=== PATIENT | female | born 1935 | race Caucasian/White ===

== ENCOUNTER 2019-09-30 10:40 | Emergency (ER) | payer MEDICARE ==
--- OUTSIDE RECORDS SUMMARY | 2019-09-30 10:46 | XMS REPORT | Continuity of Care Document ---
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 Vahid Sampson Onset: 12/18 heart failure Senile osteoporosis Vahid Sampson Onset: 12/18/2010 Congenital insufficiency of mitral valve Vahid Sampson Onset: 12/18/2010 Palpitations Vahid Sampson Onset: 12/18/2010 Peripheral vascular disease Vahid Sampson Onset: 12/18/2010 Anxiety state Vahid Sampson Onset: 12/18/2010 Neuralgia Vahid Sampson Onset: 08/29/2015 Social History Type Date Description Comments Sex Unknown Tobacco Use Start: Unknown Denies Smoking ETOH Use Currently consumes alcohol Tobacco Use Start: Unknown Patient has never smoked Recreational Drug Use Never Used Drugs Smoking Status Reviewed: 09/02/17 Patient has never smoked Allergies, Adverse Reactions, Alerts Active Allergies Reaction Severity Comments Date Macrobid 08/14/2005 Bactrim 08/14/2005 Tetanus 08/29/2015 Medications Active Medications SIG Qnty Indications Ordering Date Provider Topicort Apply bid 60gm L40.8 Vahid Sampson 09/03/2016 0.25% Cream Klor-Con 10 1 by mouth 90tabs E87.6 Vahid Sampson 08/29/2015 10Meq Tablets ER once a day Vitamin D 1 po q day 100caps E55.9 Vahid Sampson 08/17/2013 5000Units Capsules Fosamax 1 every week 12tabs M81.0 Ion Sampsonl 05/30/2009 70mg Tablets Prozac 1 by mouth 90caps F41.9 Vahid Sampson 05/19/2007 20mg Capsules every day Lipitor 1/2 by mouth 90tabs Vahid Sampson 12/23/2006 40mg Tablets every other day Hydrochlorothiazide 1 by mouth 90tabs GaussIonl 08/14/2005 25mg Tablets every day Immunizations CPT Code Status Date Vaccine Lot # [id number] Given 08/10/2019 Influenza Virus (Quadrivalent)Splitvirus 3 [id number] Years Of Age And Older Q2035 Given 09/22/2018 Influenza Virus (Quadrivalent)Splitvirus 3 [id number] Years Of Age And Older 69024 Given 09/22/2018 Influenza Virus Vaccine, Quadrivalent, Split, Preservative Free Q2035 Given 09/02/2017 Influenza Virus (Quadrivalent)Splitvirus 3 Years Of Age And Older Q2037 Given 09/03/2016 Influenza Vaccine (Fluvirin) 3 Years Of Age Or [id number] Older Q2037 Given 08/29/2015 Influenza Vaccine (Fluvirin) 3 Years Of Age Or [id number] Older 64029 Given 05/23/2015 Tetanus,Diphtheria,Adut/Adol Pertussis [id number] 06627 Given 05/23/2015 Tetanus,Diphtheria,Adut/Adol Pertussis [id number] Q2037 Given 08/16/2014 Influenza Vaccine (Fluvirin) 3 Years Of Age Or [id number] Older Q2037 Given 08/17/2013 Influenza Vaccine (Fluvirin) 3 Years Of Age Or Older Q2037 Given 08/25/2012 Influenza Vaccine (Fluvirin) 3 Years Of Age Or [id number] Older Q2036 Given 08/27/2011 Flulaval [id number] 16831 Given 08/21/2010 [place]ovax [place]valent Inj Im [id number] 90856 Given 08/21/2010 Influenza Vaccine [id number] 04668 Given 05/30/2009 Influenza Vaccine [id number] 10793 Given 08/03/2008 Influenza Vaccine [id number] 41718 Given 08/16/2005 Influenza Vaccine [id number] 78006 Given 05/08/2004 Tetanus And Diptheria Toxiods Vital Signs Date Vital Result Comment 08/10/2019 10:55am BP Systolic 162 mmHg BP Diastolic 80 mmHg Heart Rate 76 /min Respiratory Rate 20 /min Weight 121.00 lb 04/07/2019 10:47am BP Systolic 130 mmHg BP Diastolic 82 mmHg Heart Rate 86 /min Height 61 inches 5'1" Weight 122.00 lb BMI (Body Mass Index) 23.0 kg/m2 O2 % BldC Oximetry 98 % Results Test Acquired Date Facility Test Result H/L Range Note General Health 08/03/2019 [facility] TSH 1.44 mIU/L Normal 0.40- 4.50 [address] [facility] [address] [place] [address] [phone] T4, Free 1.3 ng/dL Normal 0.8-1.8 CBC W/ 08/03/2019 [facility] White Blood 5.2 Thousand/uL Normal 3.8 -10.8 Diff & PLT [address] [place] [address] [phone] Red Blood Cell Count 4.70 Million/uL Normal 3.80-5.10 Hemoglobin 13.9 g/dL Normal 11.7-15.5 Hematocrit 41.3 % Normal 35.0-45.0 MCV 87.9 fL Normal 80.0-100.0 MCH 29.6 pg Normal 27.0-33.0 MCHC 33.7 g/dL Normal 32.0-36.0 RDW 12.1 % Normal 11.0-15.0 Platelet Count 204 Thousand/uL Normal 140-400 MPV 12.3 fL Normal 7.5-12.5 Absolute Neutrophils 3843 cells/uL Normal 3061-8424 Absolute Lymphocytes 811 cells/uL Low 850-3900 Absolute Monocytes 354 cells/uL Normal 200-950 Absolute Eosinophils 172 cells/uL Normal 15-500 Absolute Basophils 21 cells/uL Normal 0-200 Neutrophils 73.9 % Normal 38-80 Lymphocytes 15.6 % Normal 15-49 Monocytes 6.8 % Normal 0-13 Eosinophils 3.3 % Normal 0-8 Basophils 0.4 % Normal 0-2 CMP W/GFR 08/03/2019 [facility] Glucose 104 mg/dL High 65-[address] [place] [address] [phone] Urea Nitrogen (BUN) 17 mg/dL Normal 7-25 Creatinine 0.51 mg/dL Low 0.60-0.88 3 eGFR Non-Afr. Ukrainian 88 mL/min/1.73m2 Normal > Or = 60 eGFR 102 mL/min/1.73m2 Normal > Or = 60 BUN/Creatinine Ratio 33 (calc) High 6-22 Sodium 139 mmol/L Normal 135-146 Potassium 4.1 mmol/L Normal 3.5-5.3 Chloride 101 mmol/L Normal 98-110 Carbon Dioxide 30 mmol/L Normal 20-32 Calcium 10.1 mg/dL Normal 8.6-10.4 Protein, Total 7.2 g/dL Normal 6.1-8.1 Albumin 4.4 g/dL Normal 3.6-5.1 Globulin 2.8 g/dL(calc) Normal 1.9-3.7 Albumin/Globulin Ratio 1.6 (calc) Normal 1.0-2.5 Bilirubin, Total 0.6 mg/dL Normal 0.2-1.2 Alkaline Phosphatase 65 U/L Normal 33-130 Ast 21 U/L Normal 10-35 Alt 24 U/L Normal 6-29 Lipid Panel 08/03/2019 [facility] Cholesterol, Total 200 mg/dL High <[address] [place] [address] [phone] HDL Cholesterol 73 mg/dL Normal >50 Triglycerides 76 mg/dL Normal <150 LDL-Cholesterol 110 mg/dL(calc) High 4 Chol/HDLC Ratio 2.7 (calc) Normal <5.0 Non HDL Cholesterol 127 mg/dL(calc) Normal <130 5 Laboratory test 08/03/2019 [facility] Enhanced PDF Report SEE IMAGE finding [address] [id number] [place] [address] [phone] 1 FASTING FASTING:YES FASTING: YES 2 Fasting reference interval For someone without known diabetes, a glucose value between 100 and 125 mg/dL is consistent with prediabetes and should be confirmed with a follow-up test. 3 For patients >49 years of age, the reference limit for Creatinine is approximately 13% higher for people identified as -Ukrainian. 4 Reference range: <100 Desirable range <100 mg/dL for primary prevention; <70 mg/dL for patients with CHD or diabetic patients with > or = 2 CHD risk factors. LDL-C is now calculated using the Melyssa calculation, which is a validated novel method providing better accuracy than the Friedewald equation in the estimation of LDL-C. Vin MOISE et al. JONATHAN. 2013;310(19): 5428-0849 (http://Segway.viavoo/faq/ZJC483) 5 For patients with diabetes plus 1 major ASCVD risk factor, treating to a non-HDL-C goal of <100 mg/dL (LDL-C of <70 mg/dL) is considered a therapeutic option. Procedures Date Code Description Status 01/03/2017 373422739 Bone Mineral Density Test Completed 09/27/2011 [id number] Colonoscopy Completed 09/06/2003 [id number] Mammogram Completed Medical Devices Description No Information Available Encounters Type Date Location Provider Dx Diagnosis Office Visit 04/07/2019 10:45a Main Office Vahid Sampson I65.23 Occlusion and stenosis of bilateral carotid arteries M79.2 Neuralgia and neuritis, unspecified E78.5 Hyperlipidemia, unspecified E55.9 Vitamin D deficiency, unspecified R73.01 Impaired fasting glucose M85.80 Oth disrd of bone density and structure, unspecified site I11.9 Hypertensive heart disease without heart failure I34.0 Nonrheumatic mitral (valve) insufficiency Office Visit 02/09/2019 11:00a Main Office Vahid Sampson I65.23 Occlusion and stenosis of bilateral carotid arteries M79.2 Neuralgia and neuritis, unspecified E78.5 Hyperlipidemia, unspecified E55.9 Vitamin D deficiency, unspecified R73.01 Impaired fasting glucose M85.80 Oth disrd of bone density and structure, unspecified site I11.9 Hypertensive heart disease without heart failure Assessments Date Code Description Provider 04/07/2019 I65.23 Occlusion and stenosis of bilateral carotid arteries Vahid Sampson 04/07/2019 M79.2 Neuralgia and neuritis, unspecified Vahid Sampson 04/07/2019 E78.5 Hyperlipidemia, unspecified Vahid Sampson 04/07/2019 E55.9 Vitamin D deficiency, unspecified Vahid Sampson 04/07/2019 R73.01 Impaired fasting glucose Vahid Sampson 04/07/2019 M85.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 and Vahid Sampson structure, [facility] 04/07/2019 I11.9 Hypertensive heart disease without heart failure Vahid Sampson 04/07/2019 I34.0 Nonrheumatic mitral (valve) insufficiency Vahid Sampson 02/09/2019 I65.23 Occlusion and stenosis of bilateral carotid arteries Vahid Sampson 02/09/2019 M79.2 Neuralgia and neuritis, unspecified Ion Sampsonl 02/09/2019 E78.5 Hyperlipidemia, unspecified Ion Sampsonl 02/09/2019 E55.9 Vitamin D deficiency, unspecified Ion Sampsonl 02/09/2019 R73.01 Impaired fasting glucose Ion Sampsonl 02/09/2019 M85.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 and Vahid Sampson, [facility] 02/09/2019 I11.9 Hypertensive heart disease without heart failure Vahid Sampson Plan of Treatment 04/07/2019 - Ion SampsonlI65.23 Occlusion and stenosis of bilateral carotid arteriesComments:Discussed role of life style choices in dietary fats and exercise plays on evolution of [place] disease and importance of controlling cholesterol. Medications role and side effects in disease progression prevention discussed and need for compliance with prescribed treatment. Follow up testing for progression such as ultrasound surveillance mazcctouX12.2 Neuralgia and neuritis, womayhwhvvbP63.5 Hyperlipidemia, unspecifiedComments: Counselled on role of diet and excersize and importance to keep compliance with medication if prescribed and side effects. The importance of routine monitoring of blood lipids and liver tests to managetreatment and avoid side effects were discussed. Usual follow up is 3 months for LFT and Lipid profile. Patient education including dietary guidelines and materials provided.E55.9 Vitamin D deficiency, uuxzczbmwpmX34.01 Impaired fasting glucoseComments:diet and pjadcyuQ45.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 and structure, unsComments:Disscussed recomended goal of 1200-1500MG Calcium and 400 IU Vit D with supplemental MG intake and dietary and supplemental ways to achieve goals. Fall prevention and impact lowering discussed and gaitstability issues addressed. Regular excersize as tolerated with weight bearing role discussed. Necessity of compliance with medications/side effects and importance of monitering for further treatment with DXA addressed. Vertebral Fracture Assesment reviewedDisscussed recomended goal of 1200-1500MG Calcium and 400 IU Vit D with supplemental MG intake and dietary and supplemental ways to achieve goals.Fall prevention and impact lowering discussed and gait stability issues addressed. Regular excersizeas tolerated with weight bearing role discussed. Necessity of compliance with medications/side effects and importance of monitering for further treatment with DXA addressed. Vertebral Fracture Assesment fowdhewyP28.9 Hypertensive heart disease without heart failureComments :CONT. TO MONITOR BP, CONT. LOW SALT DIET Discussed lifestyle factors and role of diet and excerns incontrol of disease and treatment goals and targets. Medication side effects and compliance issues addressed as indicated. The importance of ongoing self monitoring of BP and the symptoms of complications such as TIA, CVA and AMI reviewed. The importance of reporting changes in between visits and side effects stressed. monitoring of patient provided BP checks and laboratory tests related to medicationreviewed. Discussed lifestyle factors and role of diet and excerns in control of disease and treatment goals and targets. Medication side effects and compliance issues addressed as indicated. The importance of ongoing self monitoring of BP and the symptoms of complications such as TIA, CVA and AMI reviewed. The importance of reporting changes in between visits and side effects stressed. monitoring of patient provided BP checks and laboratory tests related to medication reviewed.I34.0 Nonrheumatic mitral (valve) insufficiencyComments:Issues of symptoms and aggravating lifestyle factors such as sleep, stress and dietary choices discussed. Symptoms and medication treatment and compliance and side effects discussed as needed. Need forSBE prophalaxis with antibiotics addressed and discussed where indicated. Follow up Echocardiogram as required.Discussed valvular pathology and need if indicated for antibiotic prophylaxis to prevent S.B.E. Medication compliance and side effects issues addressed. Follow up echocardiogram as warranted.Results of 2D echo and other testing reviewed and discussed with patient possible etiologies, progression prognosis and need for prophylactic antibiotics before dental procedures if warranted for S.B.E. prophylaxis. Routine follow up/ surveillance planned. Functional Status Description No Information Available Mental Status Description No Information Available Referrals Description No Information Available
--- OUTSIDE RECORDS SUMMARY | 2019-09-30 10:46 | XMS REPORT | Continuity of Care Document ---
:1935 External Reference #:[id number] Author Name Vahid Sampson (transmitted by agent of provider Alyson Gleason) Address [address] [place] [address] Problems Active Problems Provider Date Obesity Vahid Sampson Onset: 12/18/2010 Neuralgia Neuritis & Radiculitis Unspecified [...] Capsules Fosamax 1 every week 12tabs M81.0 Vahid Sampson 05/30/2009 70mg Tablets Prozac 1 by mouth 90caps F41.9 Vahid Sampson 05/19/2007 20mg Capsules every day Lipitor 1/2 by mouth 90tabs Vahid Sampson 12/23/2006 40mg Tablets every other day Hydrochlorothiazide 1 by mouth 90tabs GaussVahid 08/14/2005 25mg Tablets every day Immunizations CPT Code Status Date Vaccine Lot # [id number] Given 09/22/2018 Influenza Virus (Quadrivalent)Splitvirus 3 [id number] Years Of Age And Older 11653 Given 09/22/2018 Influenza Virus Vaccine, Quadrivalent, Split, Preservative Free Q2035 Given 09/02/2017 Influenza Virus (Quadrivalent)Splitvirus 3 Years Of Age And Older Q2037 Given 09/03/2016 Influenza Vaccine (Fluvirin) 3 Years Of Age Or [id number] Older Q2037 Given 08/29/2015 Influenza Vaccine (Fluvirin) 3 Years Of Age Or [id number] Older 91294 Given 05/23/2015 Tetanus,Diphtheria,Adut/Adol Pertussis [id number] 20596 Given 05/23/2015 Tetanus,Diphtheria,Adut/Adol Pertussis [id number] Q2037 Given 08/16/2014 Influenza Vaccine (Fluvirin) 3 Years Of Age Or [id number] Older Q2037 Given 08/17/2013 Influenza Vaccine (Fluvirin) 3 Years Of Age Or Older Q2037 Given 08/25/2012 Influenza Vaccine (Fluvirin) 3 Years Of Age Or [id number] Older Q2036 Given 08/27/2011 Flulaval [id number] 89513 Given 08/21/2010 [place] [id number] 98876 Given 08/21/2010 Influenza Vaccine [id number] 20708 Given 05/30/2009 Influenza Vaccine [id number] 51811 Given 08/03/2008 Influenza Vaccine [id number] 60845 Given 08/16/2005 Influenza Vaccine [id number] 05975 Given 05/08/2004 Tetanus And Diptheria Toxiods Vital Signs Date Vital Result Comment 04/07/2019 10:47am BP Systolic 130 mmHg BP Diastolic 82 mmHg Heart Rate 86 /min Height 61 inches 5'1" Weight 122.00 lb BMI (Body Mass Index) 23.0 kg/m2 O2 % BldC Oximetry 98 % 02/09/2019 11:04am BP Systolic 172 mmHg BP Diastolic 94 mmHg Height 61 inches 5'1" Weight 122.00 lb BMI (Body Mass Index) 23.0 kg/m2 Results Test Acquired Date Facility Test Result H/L Range Note General Health 08/03/2019 [facility] TSH 1.44 mIU/L Normal 0.40- 4.50 1 [facility] [address] [place] [address] [phone] T4, Free 1.3 ng/dL Normal 0.8-1.8 CBC W/ 08/03/2019 [facility] White Blood 5.2 Thousand/uL Normal 3.8 -10.8 Diff & PLT [address] [place] [address] [phone] Red Blood Cell Count 4.70 Million/uL Normal 3.80-5.10 Hemoglobin 13.9 g/dL Normal 11.7-15.5 Hematocrit 41.3 % Normal 35.0-45.0 MCV 87.9 fL Normal 80.0-100.0 MCH 29.6 pg Normal 27.0-33.0 MCHC 33.7 g/dL Normal 32.0-36.0 RDW 12.1 % Normal 11.0-15.0 Platelet Count 204 Thousand/uL Normal 140-400 MPV 12.3 fL Normal 7.5-12.5 Absolute Neutrophils 3843 cells/uL Normal 0059-9690 Absolute Lymphocytes 811 cells/uL Low 850-3900 Absolute Monocytes 354 cells/uL Normal 200-950 Absolute Eosinophils 172 cells/uL Normal 15-500 Absolute Basophils 21 cells/uL Normal 0-200 Neutrophils 73.9 % Normal 38-80 Lymphocytes 15.6 % Normal 15-49 Monocytes 6.8 % Normal 0-13 Eosinophils 3.3 % Normal 0-8 Basophils 0.4 % Normal 0-2 CMP W/GFR 08/03/2019 [facility] Glucose 104 mg/dL High 65-[address] [place] [address] [phone] Urea Nitrogen (BUN) 17 mg/dL Normal 7-25 Creatinine 0.51 mg/dL Low 0.60-0.88 3 eGFR Non-Afr. [place]araguan 88 mL/min/1.73m2 Normal > Or = 60 [...] 24 U/L Normal 6-29 Lipid Panel 08/03/2019 [facility] Cholesterol, Total 200 mg/dL High <[address] [place] [address] [phone] HDL Cholesterol 73 mg/dL Normal >50 Triglycerides 76 mg/dL Normal <150 LDL-Cholesterol 110 mg/dL(calc) High 4 Chol/HDLC Ratio 2.7 (calc) Normal <5.0 Non HDL Cholesterol 127 mg/dL(calc) Normal <130 5 Laboratory test 08/03/2019 [facility] Enhanced PDF Report SEE IMAGE finding [address] [id number] [place] [address] [phone] FASTING FASTING:YES FASTING: YES 2 Fasting reference interval For someone without known diabetes, a glucose value between 100 and 125 mg/dL is consistent with prediabetes and should be confirmed with a follow-up test. 3 For patients >49 years of age, the reference limit for Creatinine is approximately 13% higher for people identified as -Nicaraguan. 4 Reference range: <100 Desirable range <100 mg/dL for primary prevention; <70 mg/dL for patients with CHD or diabetic patients with > or = 2 CHD risk factors. LDL-C is now calculated using the Melyssa calculation, which is a validated novel method providing better accuracy than the Friedewald equation in the estimation of LDL-C. Vin MOISE et al. JONATHAN. 2013;310(19): 2616-1158 (http://education.Limbo/faq/IQR705) 5 For patients with diabetes plus 1 major ASCVD risk factor, treating to a non-HDL-C goal of <100 mg/dL (LDL-C of <70 mg/dL) is considered a therapeutic option. Procedures Date Code Description Status 01/03/2017 985494834 Bone Mineral Density Test Completed 09/27/2011 [id number] Colonoscopy Completed 09/06/2003 [id number] Mammogram Completed Medical Devices Description No Information [...] disorders of bone density and Vahid Sampson, uns 04/07/2019 I11.9 Hypertensive heart disease without heart failure Ion Sampsonl 04/07/2019 I34.0 Nonrheumatic mitral (valve) insufficiency Ion Sampsonl 02/09/2019 I65.23 Occlusion and stenosis of bilateral carotid arteries Ion Sampsonl 02/09/2019 M79.2 Neuralgia and neuritis, unspecified Ion Sampsonl 02/09/2019 E78.5 Hyperlipidemia, unspecified Camilla Vahid 02/09/2019 E55.9 Vitamin D deficiency, unspecified Ion Sampsonl 02/09/2019 R73.01 Impaired fasting glucose Ion Sampsonl 02/09/2019 M85.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 I11.9 Hypertensive heart disease without heart failure Vahid Sampson Plan of Treatment 04/07/2019 - Ion Sampson65.23 Occlusion and stenosis of bilateral carotid arteriesComments:Discussed role of life style choices in dietary fats and exercise plays on evolution of [place] disease and importance of controlling cholesterol. Medications role and side effects in disease progression prevention discussed and need for compliance with prescribed treatment. Follow up testing for progression such as ultrasound surveillance dqpucveaC61.2 Neuralgia and neuritis, rbcfkggbgssX40.5 Hyperlipidemia, unspecifiedComments: Counselled on role of diet and excersize and importance to keep compliance with medication if prescribed and side effects. The importance of routine monitoring of blood lipids and liver tests to managetreatment and avoid side effects were discussed. Usual follow up is 3 months for LFT and Lipid profile. Patient education including dietary guidelines and materials provided.E55.9 Vitamin D deficiency, ydzockobcpaE87.01 Impaired fasting glucoseComments:diet and mbtiolqX38.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 and [...] treatment with DXA addressed. Vertebral Fracture Assesment ykytquevR94.9 Hypertensive heart disease without heart failureComments :CONT. [...]
--- OUTSIDE RECORDS SUMMARY | 2019-09-30 10:46 | XMS REPORT | Continuity of Care Document ---
:1935 External Reference #:[id number] Author Name Vahid Sampson (transmitted by agent of provider Indira Steve) Address [address] [place] [address] Problems Active Problems Provider Date Obesity Vahid [...] Q2035 Given 08/10/2019 Influenza Virus (Quadrivalent)Splitvirus 3 [id number] Years Of Age And Older Q2035 Given 09/22/2018 Influenza Virus (Quadrivalent)Splitvirus 3 [id number] Years Of Age And Older 94104 Given 09/22/2018 Influenza Virus Vaccine, Quadrivalent, Split, Preservative Free Q2035 Given 09/02/2017 Influenza Virus (Quadrivalent)Splitvirus 3 Years Of Age And Older Q2037 Given 09/03/2016 Influenza Vaccine (Fluvirin) 3 Years Of Age Or [id number] Older Q2037 Given 08/29/2015 Influenza Vaccine (Fluvirin) 3 Years Of Age Or [id number] Older 97203 Given 05/23/2015 Tetanus,Diphtheria,Adut/Adol Pertussis [id number] 15398 Given 05/23/2015 Tetanus,Diphtheria,Adut/Adol Pertussis [id number] Q2037 Given 08/16/2014 Influenza Vaccine (Fluvirin) 3 Years Of Age Or [id number] Older Q2037 Given 08/17/2013 Influenza Vaccine (Fluvirin) 3 Years Of Age Or Older Q2037 Given 08/25/2012 Influenza Vaccine (Fluvirin) 3 Years Of Age Or [id number] Older Q2036 Given 08/27/2011 Flulaval [id number] 03689 Given 08/21/2010 [place] [id number] 25142 Given 08/21/2010 Influenza Vaccine [id number] 19465 Given 05/30/2009 Influenza Vaccine [id number] 78642 Given 08/03/2008 Influenza Vaccine [id number] 40165 Given 08/16/2005 Influenza Vaccine [id number] 15028 Given 05/08/2004 Tetanus And Diptheria Toxiods Vital [...] H/L Range Note General Health 08/03/2019 [facility] TSH 1.44 mIU/L Normal 0.40- 4.50 [address] [facility] [address] [place] [address] [phone] T4, Free 1.3 ng/dL Normal 0.8-1.8 CBC W/ 08/03/2019 [facility] White Blood 5.2 Thousand/uL Normal 3.8 -10.8 Diff & PLT [address] [address] [phone] Red Blood Cell Count 4.70 Million/uL Normal 3.80-5.10 Hemoglobin 13.9 g/dL Normal 11.7-15.5 Hematocrit 41.3 % Normal 35.0-45.0 MCV 87.9 fL Normal 80.0-100.0 MCH 29.6 pg Normal 27.0-33.0 MCHC 33.7 g/dL Normal 32.0-36.0 RDW 12.1 % Normal 11.0-15.0 Platelet Count 204 Thousand/uL Normal 140-400 MPV 12.3 fL Normal 7.5-12.5 Absolute Neutrophils 3843 cells/uL Normal 3151-6114 Absolute Lymphocytes 811 cells/uL Low 850-3900 Absolute Monocytes 354 cells/uL Normal 200-950 Absolute Eosinophils 172 cells/uL Normal 15-500 Absolute Basophils 21 cells/uL Normal 0-200 Neutrophils 73.9 % Normal 38-80 Lymphocytes 15.6 % Normal 15-49 Monocytes 6.8 % Normal 0-13 Eosinophils 3.3 % Normal 0-8 Basophils 0.4 % Normal 0-2 CMP W/GFR 08/03/2019 [facility] Glucose 104 mg/dL High 65-[address] [place] [address] [phone] Urea Nitrogen (BUN) 17 mg/dL Normal 7-25 Creatinine 0.51 mg/dL Low 0.60-0.88 3 eGFR Non-Afr. Jamaican 88 mL/min/1.73m2 Normal > Or = 60 [...] U/L Normal 6-29 Lipid Panel 08/03/2019 [facility] Cholesterol, Total 200 mg/dL High <[address] [place] [address] [phone] HDL Cholesterol 73 mg/dL Normal >50 Triglycerides 76 mg/dL Normal <150 LDL-Cholesterol 110 mg/dL(calc) High 4 Chol/HDLC Ratio 2.7 (calc) Normal <5.0 Non HDL Cholesterol 127 mg/dL(calc) Normal <130 5 Laboratory test 08/03/2019 [facility] Enhanced PDF Report SEE IMAGE finding [address] [id number] [place] [address] [phone] FASTING FASTING:YES FASTING: YES 2 Fasting reference interval For someone without known diabetes, a glucose value between 100 and 125 mg/dL is consistent with prediabetes and should be confirmed with a follow-up test. 3 For patients >49 years of age, the reference limit for Creatinine is approximately 13% higher for people identified as -Jamaican. 4 Reference range: <100 Desirable range <100 mg/dL for primary prevention; <70 mg/dL for patients with CHD or diabetic patients with > or = 2 CHD risk factors. LDL-C is now calculated using the Melyssa calculation, which is a validated novel method providing better accuracy than the Friedewald equation in the estimation of LDL-C. Vin MOISE et al. JONATHAN. 2013;310(19): 4982-4756 (http://education.[employer]/faq/XPZ037) 5 For patients with diabetes plus 1 major ASCVD risk factor, treating to a non-HDL-C goal of <100 mg/dL (LDL-C of <70 mg/dL) is considered a therapeutic option. Procedures Date Code Description Status 01/03/2017 242565553 Bone Mineral Density Test Completed 09/27/2011 71631103 Colonoscopy Completed 09/06/2003 [id number] Mammogram Completed Medical Devices Description No Information [...] heart failure Assessments Date Code Description Provider 08/10/2019 M79.2 Neuralgia and neuritis, unspecified Vahid Sampson 08/10/2019 I65.23 Occlusion and stenosis of bilateral carotid arteries Vahid Sampson 08/10/2019 E78.5 Hyperlipidemia, unspecified Vahid Sampson 08/10/2019 E55.9 Vitamin D deficiency, unspecified Vahid Sampson 08/10/2019 R73.01 Impaired fasting glucose Vahid Sampson 08/10/2019 M85.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 and Vahid Sampson structure, [facility] 08/10/2019 I11.9 Hypertensive heart disease without heart failure Camilla, Vahid 04/07/2019 I65.23 Occlusion and stenosis of bilateral carotid arteries Camilla , Vahid 04/07/2019 M79.2 Neuralgia and neuritis, unspecified Gabertin, Vahid 04/07/2019 E78.5 Hyperlipidemia, unspecified Gauss, Vahid 04/07/2019 E55.9 Vitamin D deficiency, unspecified Gabertin, Vahid 04/07/2019 R73.01 Impaired fasting glucose Camilla, Vahid 04/07/2019 M85.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 and Vahid Sampson structure, [facility] 04/07/2019 I11.9 Hypertensive heart disease without heart failure Camilla, Vahid 04/07/2019 I34.0 Nonrheumatic mitral (valve) insufficiency Camilla, Vahid 02/09/2019 I65.23 Occlusion and stenosis of bilateral carotid arteries Robertbertin Vahid 02/09/2019 M79.2 Neuralgia and neuritis, unspecified Camilla, Vahid 02/09/2019 E78.5 Hyperlipidemia, unspecified Camilla, [facility] 02/09/2019 E55.9 Vitamin D deficiency, unspecified Camilla, [facility] 02/09/2019 R73.01 Impaired fasting glucose Camilla Vahid 02/09/2019 M85.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 and RobertbertinVahid structure, [facility] 02/09/2019 I11.9 Hypertensive heart disease without heart failure Vahid Sampson Plan of Treatment Future Appointment(s):12/28/2019 8:00 am - [facility] at [facility] Doukvy2201/04/2020 10: 30 am - Vahid Sampson at [facility] Yeiwst7908/10/2019 - Edilson Sampson79.2 Neuralgia and neuritis, dvoccxmgrbcD83.23 Occlusion and stenosis of bilateral carotid arteriesComments:Discussed role of life style choices in dietary fats and exercise plays on evolution of bill moore's slough disease and importance of controlling cholesterol. Medications role and side effects in disease progression prevention discussed and need for compliance with prescribed treatment. Follow up testing for progression such as ultrasound surveillance tiyaecwdV16.5 Hyperlipidemia, unspecifiedComments:Counselled on role of diet and excersize and importance to keep compliance with medication if prescribed and side effects. The importance of routine monitoring of blood lipids and liver tests to managetreatment and avoid side effects were discussed. Usual follow up is 3 months for LFT and Lipid profile. Patient education including dietary guidelines and materials provided.E55.9 Vitamin D deficiency, riqmofbmxwyM01.01 Impaired fasting glucoseNew Labs:Hemoglobin A1c, Ordered: 08/10/19Comments:diet and vfidxzpQ89.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 and [...] treatment with DXA addressed. Vertebral Fracture Assesment [id number] Hypertensive heart disease without heart failureComments :CONT. [...] checks and laboratory tests related to medication reviewed. Functional Status Description No Information Available Mental Status Description No Information Available Referrals Description No Information Available
[2019-09-30 10:51] VITALS: BP 165/76
[2019-09-30] MEDS ORDERED: Clindamycin CAP* 150 MG PO ONE ×3 (10:58→11:14)
--- NOTE | 2019-09-30 11:01 | UC ---
[facility] HPI - HPI Summary HPI Summary: 84-year-old woman comes in with a chief complaint of dental pain. Her left upper molar has been hurting her for 4 days. She tried Orajel which helped once but that's no longer helping with the pain. She took ibuprofen 200 mg once which didn't really help. Pain does radiate into the left face. Patient reports chronic clear rhinorrhea but otherwise no signs of sinus infection. No rash on the face. Pain is worse with chewing and palpation of the tooth. - History of Current Complaint Chief Complaint: UCDentalProblem Stated Complaint: DENTAL PAIN Time Seen by Provider: 09/30/19 10:47 Pain Intensity: 8 - Allergies/Home Medications Allergies/Adverse Reactions: Allergies Allergy/AdvReac Type Severity Reaction Status Date / Time amoxicillin [From Augmentin] Allergy Rash Verified 09/30/19 10:46 clavulanic acid Allergy Rash Verified 09/30/19 10:46 [From Augmentin] Penicillins Allergy Unknown Verified 09/30/19 10:46 Reaction Details Sulfa (Sulfonamide Allergy Rash Verified 09/30/19 10:47 Antibiotics) PMH/Surg Hx/FS Hx/Imm Hx Previously Healthy: Yes Endocrine History: Dyslipidemia Cardiovascular History: Hypertension - Surgical History Surgical History: None - Family History Known Family History: Positive: Non-Contributory - Social History Alcohol Use: None Alcohol Amount: 1 GLASS WINE Substance Use Type: None Smoking Status (MU): Never Smoked Tobacco Review of Systems All Other Systems Reviewed And Are Negative: Yes Constitutional: Positive: Other - SEE HPI Skin: Positive: Negative Eyes: Positive: Negative ENT: Positive: Dental Pain, Nasal Discharge Respiratory: Positive: Negative Cardiovascular: Positive: Negative Gastrointestinal: Positive: Negative Motor: Positive: Negative Neurovascular: Positive: Negative Musculoskeletal: Positive: Negative Neurological: Positive: Negative Psychological: Positive: Negative Is Patient Immunocompromised?: No Physical Exam Triage Information Reviewed: Yes Appearance: Well-Appearing, Well-Nourished, Pain Distress - MILD Vital Signs: Initial Vital Signs Temp 98.8 F 09/30/19 10:48 Pulse 98 09/30/19 10:48 Resp 20 09/30/19 10:48 BP 165/76 09/30/19 10:48 Pulse Ox 98 09/30/19 10:48 Vital Signs Reviewed: Yes Eye Exam: Normal Eyes: Positive: Conjunctiva Clear ENT: Positive: Pharynx normal, TMs normal, Other - No rash on the side of the face. Dental: Positive: Gross Decay/Caries @ - Left upper molar has extensive caries in it. There is some swelling on the left side of face. Neck: Positive: Supple Respiratory: Positive: Lungs clear, Normal breath sounds, No respiratory distress Cardiovascular: Positive: RRR Musculoskeletal: Positive: Strength Intact, ROM Intact Neurological: Positive: Alert, Muscle Tone Normal Psychological: Positive: Normal Response To Family, Age Appropriate Behavior Skin Exam: Normal Dental Complaint Course/Dx - Course Course Of Treatment: Starting the patient on clindamycin 300 mg by mouth 3 times a day. First dose given here in clinic. Patient follow-up with her dentist. - Differential Dx/Diagnosis Provider Diagnosis: Tooth ache Discharge ED - Sign-Out/Discharge Documenting (check all that apply): Patient Departure All imaging exams completed and their final reports reviewed: No Studies - Discharge Plan Condition: Stable Disposition: HOME Prescriptions: Clindamycin Cap(NF) [Clindamycin Cap 300 mg Cap(NF)] 300 mg PO TID #27 cap Patient Education Materials: Toothache (ED) Referrals: Vahid Sampson MD [Primary Care Provider] - Additional Instructions: FOLLOW UP WITH YOUR DENTIST. You can take ibuprofen 400 mg every 4 hours as needed. He can also take acetaminophen 650 mg every 4 hours as needed. GET REEVALUATED SOONER IF NOT IMPROVING OR WORSE OR ANY QUESTIONS OR CONCERNS. - Billing Disposition and Condition Condition: STABLE Disposition: Home
== END 2019-09-30 11:11 | disposition home or self-care (01) ==
LOC: UCCORT 10:40
DX: K08.89 Other specified disorders of teeth and supporting structures (principal); I10 Essential (primary) hypertension; J34.89 Other specified disorders of nose and nasal sinuses; Z88.1 Allergy status to other antibiotic agents; Z88.2 Allergy status to sulfonamides
CPT/HCPCS: 99202; A9270-GY; G0463